=== PATIENT | female | born 1950 | race Caucasian/White ===

== ENCOUNTER 2016-11-26 23:51 | Emergency (ER) | payer MEDICARE, OTHER ==
[2016-11-27] MEDS ORDERED: KETOROLAC TROMETHAMINE 30 MG/1ML VIAL IVP ONE (00:20)
[2016-11-27] MEDS ORDERED: ONDANSETRON HCL/PF 4 MG/ 2ML VIAL IVP ONE (00:27)
[2016-11-27 00:58] LABS: BASOPHILS % 0.2 (0.0-1.5); EOSINOPHILS % 0.4 % (0.0-6.8); LYMPHOCYTES # 0.4 # k/uL (0.6-4.0); MEAN CORPUSCULAR HEMOGLOBIN 31.4 pg (28.0-34.0); MONOCYTES # 0.1 # k/uL (0.0-0.9); MONOCYTES % 1.2 % (0.0-11.0); NEUTROPHILS # 4.7 # k/uL (1.4-7.7)
--- NOTE | 2016-11-27 01:01 | ED Physician Documentation ---
General Adult - HISTORIAN Historian: patient, child (daughter) - HPI Stated Complaint: cough, soa, fever Chief Complaint: General Adult Additional Information: Cough and fever to 101 since 1999 yesterday. Took tylenol 3-4 hours before coming to ER w/o change in temp. Also has GONZALEZ and nausea that began at the same time. Daughter exposed to strep two days ago. Oncologist has told her to come to ER with fever. Timing: still present (temp 100.7 on arrival in ER) - ROS CONST: fever GI/: nausea - PAST HX Past History: other (breast cancer, chronic back pain, depression, GERD, neuropathy) Surgeries/Procedures: other (partial thyroidectomy, [id number] surgeries, hysterectomy) Immunizations: other (flu shot in June) Allergies/Adverse Reactions: Allergies Allergy/AdvReac Type Severity Reaction Status Date / Time No Known Allergies Allergy Verified 09/04/16 09:22 Home Medications: Ambulatory Orders Medication Instructions Recorded Letrozole [Femara] 2.5 mg PO D 07/12/15 Fentanyl [Fentanyl] 50 mcg TOP Q72 09/04/16 Fluoxetine HCl [Fluoxetine HCl] 20 mg PO DAILY 09/04/16 Furosemide [Furosemide] 20 mg PO DAILY 09/04/16 Hydrocodone/Acetaminophen 1 tab PO Q4 PRN 09/04/16 [Hydrocodon-Acetaminophn 10-325] Lorazepam [Lorazepam] 1 mg PO TID PRN 09/04/16 Ondansetron HCl Tablet [Zofran] 4 mg PO Q6 PRN 09/04/16 Fluticasone Propionate [Flonase] 1 spray INH D 11/27/16 Omeprazole [Prilosec] 20 mg PO BID 11/27/16 Prochlorperazine Maleate 10 mg PO Q4 PRN 11/27/16 [Compazine] - SOCIAL HX Smoking History: non-smoker - FAMILY HX Family History: No - VITAL SIGNS Vital Signs: Vital Signs Temp Pulse Resp BP Pulse Ox 100.7 F H 124 H 22 164/90 91 L 11/26/16 23:51 11/26/16 23:51 11/26/16 23:51 11/26/16 23:51 11/26/16 23:51 - REVIEWED ASSESSMENTS Nursing Assessment Reviewed: Yes Vitals Reviewed: Yes Progress - Progress Progress: Chest 2 views History: Headache, nausea, cough, fever, breast cancer Findings: Extensive left upper lung and left basilar lung infiltrates are unchanged since September 04, 2016. Cervical fusion hardware, superior vena cava catheter, and calcified granulomas are observed. Left basilar pleural thickening or small left pleural effusion is unchanged. Heart size is normal. Impression: Chronic left lung infiltrate and pleural thickening. No acute abnormality is observed. Electronically signed on Nov 27, 2016 12:59:10 AM CDT by: Cisco Schroeder Blood cultures done, rapid strep negative, labs good. ED Results Lab/Radiology - Lab Results Lab Results: Lab Results 11/27/16 00:21 WBC 5.20 K/ul K/ul (4.00-12.00) RBC 3.40 M/ul L M/ul (3.90-5.20) Hgb 10.7 g/dL L g/dL (12.0-16.0) Hct 31.9 % L % (34.5-46.5) MCV 93.9 fl fl (80.0-100.0) MCH 31.4 pg pg (28.0-34.0) MCHC 33.5 g/dL g/dL (30.0-36.0) RDW 17.3 % H % (11.3-14.3) Plt Count 206 K/mm3 K/mm3 (130-400) Neut % (Auto) 90.5 % H % (39.0-79.0) Lymph % (Auto) 7.2 % L % (16.0-50.0) [place] % (Auto) 1.2 % % (0.0-11.0) Eos % (Auto) 0.4 % % (0.0-6.8) Baso % (Auto) 0.2 (0.0-1.5) Neut # 4.7 # k/uL # k/uL (1.4-7.7) Lymph # 0.4 # k/uL L # k/uL (0.6-4.0) [place] # 0.1 # k/uL # k/uL (0.0-0.9) Eos # 0.0 # k/uL # k/uL (0.0-0.6) Baso # 0.0 # k/uL # k/uL (0.0-0.5) Reactive Lymphs % 0.5 % % (0.0-5.0) Reactive Lymphs # 0.0 # k/uL # k/uL (0.0-0.8) - Orders Orders: ED Orders Category Date Time Status Place Saline Lock/IV Now Care 11/27/16 00:03 Active CHEST 2 VIEW [CHEST P.A.&LAT 2 VIEWS] [RAD] Stat Exams 11/27/16 Ordered BLOOD CULTURE Stat Lab 11/27/16 00:54 Received CBC/PLATELET/DIFF Routine Lab 11/27/16 00:21 Completed CMP Routine Lab 11/27/16 00:20 Received URINALYSIS Routine Lab 11/27/16 Ordered Ketorolac Tromethamine [Toradol] Med 11/27/16 00:20 Discontinued 30 mg IVP NOW ONE Ondansetron HCl/Pf [Zofran 4 mg/2 ml] Med 11/27/16 00:27 Discontinued 4 mg IVP NOW ONE General Adult Physical Exam - PHYSICAL EXAM GENERAL APPEARANCE: obese EENT: eye inspection normal, ENT inspection normal, pharynx normal NECK: normal inspection, supple RESPIRATORY: no resp distress, rales (soft LLL) CVS: heart sounds normal (decreased throughout, L>R) ABDOMEN: soft, normal bowel sounds, non-tender BACK: normal inspection, no CVA tenderness, other (no vertebral tenderness) EXTREMITIES: no evidence of injury NEURO: CN's nml as tested, motor nml Discharge Clincal Impression: Cough Additional Instructions: Treat your fever with tylenol and ibuprofen. If you are unable to control the fever or you feel you are getting worse, return to the ER. Home Medications: Ambulatory Orders Letrozole [Femara] 2.5 mg PO D 07/12/15 Fentanyl [Fentanyl] 50 mcg TOP Q72 09/04/16 Fluoxetine HCl [Fluoxetine HCl] 20 mg PO DAILY 09/04/16 Furosemide [Furosemide] 20 mg PO DAILY 09/04/16 Hydrocodone/Acetaminophen [Hydrocodon-Acetaminophn 10-325] 1 tab PO Q4 PRN 09/04 Lorazepam [Lorazepam] 1 mg PO TID PRN 09/04/16 Ondansetron HCl Tablet [Zofran] 4 mg PO Q6 PRN 09/04/16 Fluticasone Propionate [Flonase] 1 spray INH D 11/27/16 Omeprazole [Prilosec] 20 mg PO BID 11/27/16 Prochlorperazine Maleate [Compazine] 10 mg PO Q4 PRN 11/27/16 Condition: Good Disposition: 01 HOME, SELF-CARE Decision to Admit: NO Decision Time: 01:27
[2016-11-27 01:10] LABS: eGFR (African) > 60; eGFR (Non-African) > 60
--- NOTE | 2016-11-27 01:15 | Diagnostic Imaging Report ---
LUPIS MANNING~ [facility] [address] [facility] [address] [place], [place]. [address] ~ ~ ~ ~ Report Submission Date: Nov 27, 2016 12:59:10 AM CDT Patient ~ Study Name: VA DICKEY ~ Date: Nov 27, 2016 12:31:29 AM CDT ~ Modality Type: CR Gender: F ~ Description: CHEST : 52 ~ Institution: [facility] Physician: LUPIS MANNING ~ ~ ~ ~ Chest 2 views History: Headache, nausea, cough, fever, breast cancer Findings: Extensive left upper lung and left basilar lung infiltrates are unchanged since September 04, 2016. Cervical fusion hardware, superior vena cava catheter, and calcified granulomas are observed. Left basilar pleural thickening or small left pleural effusion is unchanged. Heart size is normal. Impression: Chronic left lung infiltrate and pleural thickening. No acute abnormality is observed. ~ Electronically signed on Nov 27, 2016 12:59:10 AM CDT by: Cisco DAMICO
[2016-11-27 03:27] VITALS: BP 122/83
== END 2016-11-27 01:35 | disposition home or self-care (01) ==
LOC: ED 23:51
DX: R05 Cough (principal)
CPT/HCPCS: 71020; 80053; 85025; 87040; 87070; 87880; J1885; J2405; 96374; 96375; 99283; 99284; S1016

== ENCOUNTER 2017-03-31 15:42 | Emergency (ER) | payer MEDICARE, OTHER ==
[2017-03-31 16:17] LABS: EOSINOPHILS % 2.1 % (0.0-6.8); MEAN CORPUSCULAR HEMOGLOBIN 29.6 pg (28.0-34.0); MEAN CORPUSCULAR VOLUME 92.3 fl (80.0-100.0); MONOCYTES % 4.1 % (0.0-11.0); NEUTROPHILS # 2.1 # k/uL (1.4-7.7)
[2017-03-31 16:29] LABS: eGFR (African) > 60; eGFR (Non-African) > 60
[2017-03-31] MEDS ORDERED: MORPHINE SULFATE 2 MG/ML PREFILLED SYR ONE (17:09)
[2017-03-31] MEDS ORDERED: ONDANSETRON HCL/PF 4 MG/ 2ML VIAL IVP ONE (17:26)
--- NOTE | 2017-03-31 17:31 | ED Physician Documentation ---
Chest Pain - HISTORIAN Historian: patient - HPI Stated Complaint: Shortness of Breath Chief Complaint: General Adult Additional Information: Joi is a 66yo woman with a history of Stage 4 lung cancer. She has had a partial lung removal on the left and is currently undergoing chemotherapy. She has been feeling some shortness of breath and chest pressure all day. She feels the pressure across her lower chest. It does not radiate to her arms or jaw. She uses a CPAP at home and has a nebulizer, but did not use it today. She does not move her bowels well, but that is her baseline. She denies swelling in her legs, nausea, fever/chills, sweating. On presentation to the ER she was started on oxygen. The shortness of breath has improved, but she still feels pressure in her chest. Onset: hours Timing: still present Severity: moderate Quality: pressure, dull. denies: sharp, stabbing Chest Pain Radiation: no radiation Chest Pain Signs/Symptoms: denies: nausea, vomiting, diaphoresis Relieved By: nothing - ROS CONST: recent illness. denies: fever, recent injury MS/LYMPH: denies: calf pain, ankle swelling GI/: other (constipation from pain medicine). denies: abdominal pain, problems urinating EYES/ENT: none SKIN/ENDO: none NEURO/PSYCH: none - PAST HX NH risk factors: no pertinent history DVT/PE Risk Factors: cancer. denies: leg swelling Neuro deficit: none GI disease: GERD, immunocompromise Lung disease: other (Lung CA) Surgeries/Procedures: hysterectomy, other (partial thyroidectomy, bilateral TKR) Immunizations: influenza - SOCIAL HX Smoking History: non-smoker - VITAL SIGNS Vital Signs: Vital Signs Temp Pulse Resp BP Pulse Ox 98.7 F 78 26 H 132/95 99 03/31/17 15:45 03/31/17 17:00 03/31/17 15:45 03/31/17 15:45 03/31/17 17:00 - REVIEWED ASSESSMENTS Nursing Assessment Reviewed: Yes Vitals Reviewed: Yes <Troy Arboleda - Last Filed: 03/31/17 18:26> - HPI Last known Well Date: 03/30/17 Last Known Well Time: 17:00 - FAMILY HX Family HX: none - VITAL SIGNS Vital Signs: Vital Signs Temp Pulse Resp BP Pulse Ox 98.7 F 83 26 H 132/95 99 03/31/17 15:45 03/31/17 19:00 03/31/17 15:45 03/31/17 15:45 03/31/17 19:00 <Carmelo Mcgarry - Last Filed: 03/31/17 20:17> - PAST HX Allergies/Adverse Reactions: Allergies Allergy/AdvReac Type Severity Reaction Status Date / Time No Known Allergies Allergy Verified 03/31/17 16:07 Home Medications: Ambulatory Orders Medication Instructions Recorded Letrozole [Femara] 2.5 mg PO D 07/12/15 Fentanyl [Fentanyl] 50 mcg TOP Q72 09/04/16 Fluoxetine HCl [Fluoxetine HCl] 20 mg PO DAILY 09/04/16 Furosemide [Furosemide] 20 mg PO DAILY 09/04/16 Hydrocodone/Acetaminophen 1 tab PO Q4 PRN 09/04/16 [Hydrocodon-Acetaminophn 10-325] Lorazepam [Lorazepam] 1 mg PO TID PRN 09/04/16 Ondansetron HCl Tablet [Zofran] 4 mg PO Q6 PRN 09/04/16 Fluticasone Propionate [Flonase] 1 spray INH D 11/27/16 Omeprazole [Prilosec] 20 mg PO BID 11/27/16 Prochlorperazine Maleate 10 mg PO Q4 PRN 11/27/16 [Compazine] Progress - Progress Progress: CT chest, PE protocol: Impression: Significant left-sided consolidation effusion and bronchiectasis. Timing of the contrast bolus makes visualization the pulmonary vasculature difficult. No obvious of luminal filling defect. Zosyn 3.375 gm IV Transfer to [facility], Dr. Bunn. - EKG/XRAY/CT EKG: NSR (HR=85; ME interval wnl; normal axis; non-specific T-wave abnormality.) <Carmelo Mcgarry - Last Filed: 03/31/17 20:17> ED Results Lab/Radiology - Lab Results Lab Results: Lab Results 03/31/17 03/31/17 03/31/17 16:10 16:10 16:10 WBC RBC Hgb Hct MCV MCH MCHC RDW Plt Count Neut % (Auto) Lymph % (Auto) [place] % (Auto) Eos % (Auto) Baso % (Auto) Neut # (Auto) Lymph # (Auto) [place] # (Auto) Eos # (Auto) Baso # (Auto) Reactive Lymphs % Reactive Lymphs # PT 10.0 Seconds Seconds (9.4-11.6) INR 0.95 (0.9-1.2) Sodium 140 mmol/L mmol/L (136-145) Potassium 3.3 mmol/L L mmol/L (3.5-5.0) Chloride 102 mmol/L mmol/L (98-110) Carbon Dioxide 28 mmol/L mmol/L (20-32) BUN 10 mg/dL mg/dL (10-26) Creatinine 0.6 mg/dL mg/dL (0.4-1.5) Estimated Creat Clear 181 Est GFR ( Amer) > 60 (60 - ) Est GFR (Non-Af Amer) > 60 (60 - ) Glucose 100 mg/dL H mg/dL (70-99) Calcium 9.5 mg/dL mg/dL (8.5-10.5) Total Bilirubin 0.3 mg/dL mg/dL (0.2-1.2) AST 23 U/L U/L (0-41) ALT 15 U/L U/L (0-45) Alkaline Phosphatase 44 U/L L U/L (46-116) Creatine Kinase 63 U/L U/L (0-225) Troponin I < 0.03 ng/mL L ng/mL (0.03-0.06) Total Protein 6.5 g/dL g/dL (6.0-8.5) Albumin 4.5 g/dL g/dL (3.0-5.5) 03/31/17 16:10 WBC 3.10 K/ul L K/ul (4.00-12.00) RBC 3.55 M/ul L M/ul (3.90-5.20) Hgb 10.5 g/dL L g/dL (12.0-16.0) Hct 32.8 % L % (34.5-46.5) MCV 92.3 fl fl (80.0-100.0) MCH 29.6 pg pg (28.0-34.0) MCHC 32.1 g/dL g/dL (30.0-36.0) RDW 16.8 % H % (11.3-14.3) Plt Count 201 K/mm3 K/mm3 (130-400) Neut % (Auto) 67.3 % % (39.0-79.0) Lymph % (Auto) 23.4 % % (16.0-50.0) [place] % (Auto) 4.1 % % (0.0-11.0) Eos % (Auto) 2.1 % % (0.0-6.8) Baso % (Auto) 1.0 (0.0-1.5) Neut # (Auto) 2.1 # k/uL # k/uL (1.4-7.7) Lymph # (Auto) 0.7 # k/uL # k/uL (0.6-4.0) [place] # (Auto) 0.1 # k/uL # k/uL (0.0-0.9) Eos # (Auto) 0.1 # k/uL # k/uL (0.0-0.6) Baso # (Auto) 0.0 # k/uL # k/uL (0.0-0.5) Reactive Lymphs % 2.1 % % (0.0-5.0) Reactive Lymphs # 0.1 # k/uL # k/uL (0.0-0.8) PT INR Sodium Potassium Chloride Carbon Dioxide BUN Creatinine Estimated Creat Clear Est GFR ( Amer) Est GFR (Non-Af Amer) Glucose Calcium Total Bilirubin AST ALT Alkaline Phosphatase Creatine Kinase Troponin I Total Protein Albumin - Radiology Radiology Impressions: EKG was normal Chest Xray showed stable cardiac prominence and left hilar inflitrate, left sided changes are chronic. - Orders Orders: ED Orders Category Date Time Status Continuous EKG monitoring Q30M Care 03/31/17 15:59 Active Continuous Pulse Oximetry Q30M Care 03/31/17 15:59 Active CHEST P.A.&LAT 2 VIEWS [RAD] Stat Exams 03/31/17 Ordered CBC/PLATELET/DIFF Routine Lab 03/31/17 16:10 Completed CMP Routine Lab 03/31/17 16:10 Completed CREATINE KINASE Routine Lab 03/31/17 16:10 Completed D DIMER Stat Lab 03/31/17 16:10 Received PT-INR Stat Lab 03/31/17 16:10 Completed TROPONIN I (cTnI) Stat Lab 03/31/17 16:10 Completed Morphine Sulfate [DepoDur] Med 03/31/17 17:09 Discontinued 2 mg .ROUTE .STK-MED ONE Ondansetron HCl/Pf [Zofran 4 mg/2 ml] Med 03/31/17 17:26 Once 4 mg IVP NOW ONE Oxygen Daily Oxygen 03/31/17 16:00 Ordered EKG WITH COMPARISON Stat Ther 03/31/17 15:59 Ordered <RoblesTroy - Last Filed: 03/31/17 18:26> - Lab Results Lab Results: Lab Results 03/31/17 03/31/17 03/31/17 16:10 16:10 16:10 WBC RBC Hgb Hct MCV MCH MCHC RDW Plt Count Neut % (Auto) Lymph % (Auto) [place] % (Auto) Eos % (Auto) Baso % (Auto) Neut # (Auto) Lymph # (Auto) [place] # (Auto) Eos # (Auto) Baso # (Auto) Reactive Lymphs % Reactive Lymphs # PT 10.0 Seconds Seconds (9.4-11.6) INR 0.95 (0.9-1.2) D-Dimer 1311 ng/mL H ng/mL (6.0-682) Sodium Potassium Chloride Carbon Dioxide BUN Creatinine Estimated Creat Clear Est GFR ( Amer) Est GFR (Non-Af Amer) Glucose Calcium Total Bilirubin AST ALT Alkaline Phosphatase Creatine Kinase Troponin I < 0.03 ng/mL L ng/mL (0.03-0.06) Total Protein Albumin 03/31/17 03/31/17 16:10 16:10 WBC 3.10 K/ul L K/ul (4.00-12.00) RBC 3.55 M/ul L M/ul (3.90-5.20) Hgb 10.5 g/dL L g/dL (12.0-16.0) Hct 32.8 % L % (34.5-46.5) MCV 92.3 fl fl (80.0-100.0) MCH 29.6 pg pg (28.0-34.0) MCHC 32.1 g/dL g/dL (30.0-36.0) RDW 16.8 % H % (11.3-14.3) Plt Count 201 K/mm3 K/mm3 (130-400) Neut % (Auto) 67.3 % % (39.0-79.0) Lymph % (Auto) 23.4 % % (16.0-50.0) [place] % (Auto) 4.1 % % (0.0-11.0) Eos % (Auto) 2.1 % % (0.0-6.8) Baso % (Auto) 1.0 (0.0-1.5) Neut # (Auto) 2.1 # k/uL # k/uL (1.4-7.7) Lymph # (Auto) 0.7 # k/uL # k/uL (0.6-4.0) [place] # (Auto) 0.1 # k/uL # k/uL (0.0-0.9) Eos # (Auto) 0.1 # k/uL # k/uL (0.0-0.6) Baso # (Auto) 0.0 # k/uL # k/uL (0.0-0.5) Reactive Lymphs % 2.1 % % (0.0-5.0) Reactive Lymphs # 0.1 # k/uL # k/uL (0.0-0.8) PT INR D-Dimer Sodium 140 mmol/L mmol/L (136-145) Potassium 3.3 mmol/L L mmol/L (3.5-5.0) Chloride 102 mmol/L mmol/L (98-110) Carbon Dioxide 28 mmol/L mmol/L (20-32) BUN 10 mg/dL mg/dL (10-26) Creatinine 0.6 mg/dL mg/dL (0.4-1.5) Estimated Creat Clear 181 Est GFR ( Amer) > 60 (60 - ) Est GFR (Non-Af Amer) > 60 (60 - ) Glucose 100 mg/dL H mg/dL (70-99) Calcium 9.5 mg/dL mg/dL (8.5-10.5) Total Bilirubin 0.3 mg/dL mg/dL (0.2-1.2) AST 23 U/L U/L (0-41) ALT 15 U/L U/L (0-45) Alkaline Phosphatase 44 U/L L U/L (46-116) Creatine Kinase 63 U/L U/L (0-225) Troponin I Total Protein 6.5 g/dL g/dL (6.0-8.5) Albumin 4.5 g/dL g/dL (3.0-5.5) - Orders Orders: ED Orders Category Date Time Status Continuous EKG monitoring Q30M Care 03/31/17 15:59 Active Continuous Pulse Oximetry Q30M Care 03/31/17 15:59 Active CHEST P.A.&LAT 2 VIEWS [RAD] Stat Exams 03/31/[address] PE CHEST Stat Exams 03/31/17 Completed CBC/PLATELET/DIFF Routine Lab 03/31/17 16:10 Completed CMP Routine Lab 03/31/17 16:10 Completed CREATINE KINASE Routine Lab 03/31/17 16:10 Completed D DIMER Stat Lab 03/31/17 16:10 Completed PT-INR Stat Lab 03/31/17 16:10 Completed TROPONIN I (cTnI) Stat Lab 03/31/17 16:10 Completed Morphine Sulfate [DepoDur] Med 03/31/17 17:09 Discontinued 2 mg .ROUTE .STK-MED ONE Morphine Sulfate [DepoDur] Med 03/31/17 17:32 Discontinued 2 mg IVP NOW ONE Ondansetron HCl/Pf [Zofran 4 mg/2 ml] Med 03/31/17 17:26 Discontinued 4 mg IVP NOW ONE Oxygen Daily Oxygen 03/31/17 16:00 Ordered EKG WITH COMPARISON Stat Ther 03/31/17 15:59 Ordered <Carmelo Mcgarry - Last Filed: 03/31/17 20:17> Chest Pain Physical Exam - EXAM General Appearance: no acute distress, alert. No: hyperventilating EENT: eye inspection normal. No: pale conjunctivae, dry mucous membranes Neck: nml inspection. No: JVD present Respiratory: no resp. distress, chest non-tender. No: rales CVS: reg. rate & rhythm, no murmur Abdomen: soft, no distension, non-tender Skin: warm/dry, normal color Extremities: non-tender, no evidence of injury, no edema Neuro: oriented X3, CN's nml as tested, cognition normal <Robles,Simmons - Last Filed: 03/31/17 18:26> Discharge <Robles,Simmons - Last Filed: 03/31/17 18:26> Decision to Admit: NO Decision Time: 20:15 <Carmelo Mcgarry - Last Filed: 03/31/17 20:17> Clincal Impression: Chest pain, sob, lung cancer Referrals: Brielle Tolliver MD [Primary Care Provider] - Home Medications: Ambulatory Orders Letrozole [Femara] 2.5 mg PO D 07/12/15 Fentanyl [Fentanyl] 50 mcg TOP Q72 09/04/16 Fluoxetine HCl [Fluoxetine HCl] 20 mg PO DAILY 09/04/16 Furosemide [Furosemide] 20 mg PO DAILY 09/04/16 Hydrocodone/Acetaminophen [Hydrocodon-Acetaminophn 10-325] 1 tab PO Q4 PRN 09/04 Lorazepam [Lorazepam] 1 mg PO TID PRN 09/04/16 Ondansetron HCl Tablet [Zofran] 4 mg PO Q6 PRN 09/04/16 Fluticasone Propionate [Flonase] 1 spray INH D 11/27/16 Omeprazole [Prilosec] 20 mg PO BID 11/27/16 Prochlorperazine Maleate [Compazine] 10 mg PO Q4 PRN 11/27/16 Condition: Stable Disposition: 02 XFER [facility]
[2017-03-31] MEDS ORDERED: MORPHINE SULFATE 2 MG/ML PREFILLED SYR IVP ONE (17:32)
--- NOTE | 2017-03-31 19:31 | Diagnostic Imaging Report ---
MESFIN PEDRAZA [facility] [address] [facility] [address] [place], [place]. [address] Report Submission Date: Mar 31, 2017 4:38:28 PM CDT Patient Study Name: VA DICKEY Date: Mar 31, 2017 4:13:55 PM CDT Modality Type: CR Gender: F Description: CHEST : 52 Institution: [facility] Physician: MESFIN PEDRAZA Examination: PA and lateral chest. History: Evaluate lung urias. Comparison exam: 27 November 2016 Findings: PA lateral chest demonstrates a prominent cardiac silhouette. Continued parenchymal haze involving the left hilum and lower lung. Obscuration of the left hemidiaphragm. Right hemithorax without focal infiltrate or effusion. Left subclavian line. Elevation of the left hemidiaphragm with stomach bubble. Impression: Stable cardiac prominence and left hilar infiltrate/effusion. No new right consolidation or effusion. Electronically signed on Mar 31, 2017 4:38:28 PM CDT by: Herrera DAMICO
--- NOTE | 2017-03-31 19:46 | Diagnostic Imaging Report ---
SHARRI MURDOCK [facility] [address] [facility] [address] [address] Report Submission Date: Mar 31, 2017 7:44:24 PM CDT Patient Study Name: VA DICKEY Date: Mar 31, 2017 7:07:50 PM CDT Modality Type: CT\SR Gender: F Description: CT ANGIOGRAPHY CHEST 7 : 52 Institution: [facility] Physician: SHARRI MURDOCK Examination: CT chest History: Chest discomfort Comparison exams: Plain film dated 31 March 2017 Technique: CT chest without contrast protocol Findings: Left hemithorax demonstrates a large consolidative process at the lung base associated with posterior pleural thickening/fluid. Left hilum with scattered regions of bronchial thickening /bronchiectasis. Right hemithorax with mild peripheral scarring and atelectasis. Calcified granuloma right lower lung measuring 1 cm. Cardiac silhouette is upper limits of normal. Mediastinal structures without gross irregularity. Thoracic aorta with a peripheral atherosclerotic disease. No aneurysmal dilation. Timing of the contrast bolus makes visualization the pulmonary vasculature difficult. No obvious of luminal filling defect. Osseous structures demonstrate degenerative changes. Lower neck structures without gross abnormality. Upper abdominal organs without acute appearing process. Significantly elevated left hemidiaphragm Incidentally noted a solid appearing density within the medial margin of the left breast measuring 2.5 cm. Impression: Significant left-sided consolidation effusion and bronchiectasis. Correlation with any previous CT chest recommended if available. Timing of the contrast bolus makes visualization the pulmonary vasculature difficult. No obvious of luminal filling defect. Left breast density: not formally evaluated - recommend obtaining mammogram if not already performed. Electronically signed on Mar 31, 2017 7:44:24 PM CDT by: Herrera DAMICO
[2017-03-31] MEDS ORDERED: PIPERACILLIN SODIUM/TAZOBACTAM 3.375 GM VIAL IV ONE (20:14)
[2017-03-31] MEDS ORDERED: 0.9 % SODIUM CHLORIDE 50 ML IV ONE (20:14)
[2017-03-31] MEDS ORDERED: PIPERACILLIN SODIUM/TAZOBACTAM 3.375 GM in 0.9 % SODIUM CHLORIDE 50 ML IV STA (20:14)
[2017-03-31 21:17] VITALS: BP 111/81
== END 2017-03-31 21:00 | disposition short-term general hospital (02) ==
LOC: ED 15:42
DX: R07.9 Chest pain, unspecified (principal); R06.02 Shortness of breath; D02.20 Carcinoma in situ of unspecified bronchus and lung
CPT/HCPCS: 71020; 71275; 80053; 82550; 84484; 85025; 85379; 85610; J2270; J2543; 96374; 96375; 99284

== ENCOUNTER 2019-03-12 04:20 | Emergency (ER) | payer MEDICARE, OTHER ==
--- NOTE | 2019-03-12 04:33 | ED Physician Documentation ---
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 Tonight pt developed vomiting without nausea. She said she felt as if her stomach was backed up or fill and she just could not belch the gas. 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 No fever. Pt has had a recent normal bm.) - ROS CONST: no problems EYES/ENT: none CVS/RESP: none GI/: nausea MS/SKIN/LYMPH: none - PAST HX Past History: other (lung cancer with bone mets; thyroid dz; ) Surgeries/Procedures: hysterectomy, other (ortho surgery) Allergies/Adverse Reactions: Allergies Allergy/AdvReac Type Severity Reaction Status Date / Time No Known Allergies Allergy Verified 03/12/19 05:07 Home Medications: Ambulatory Orders Medication Instructions Recorded Letrozole [Femara] 2.5 mg PO D 07/12/15 Fentanyl 50 mcg TOP Q72 09/04/16 Fluoxetine HCl 20 mg PO DAILY 09/04/16 Furosemide 20 mg PO DAILY 09/04/16 Hydrocodone/Acetaminophen 1 tab PO Q4 PRN 09/04/16 [Hydrocodon-Acetaminophn 10-325] Lorazepam 1 mg PO TID PRN 09/04/16 Ondansetron HCl Tablet [Zofran] 4 mg PO Q6 PRN 09/04/16 Fluticasone Propionate [Flonase] 1 spray INH D 11/27/16 Omeprazole [Prilosec] 20 mg PO BID 11/27/16 Prochlorperazine Maleate 10 mg PO Q4 PRN 11/27/16 [Compazine] - SOCIAL HX Smoking History: quit greater than 1 year - FAMILY HX Family History: No - VITAL SIGNS Vital Signs: Vital Signs Temp Pulse Resp BP Pulse Ox 180/97 06/22/17 00:55 - REVIEWED ASSESSMENTS Nursing Assessment Reviewed: Yes Vitals Reviewed: Yes Progress - Progress Progress: NS 1 L IVF Zofran 4 mg IV KCl 40 mEq po x 1 Pt improved. Rx Potassium Chloride 20 mEq. Take one by mouth once daily. Follow up with primary provider for recheck of your potassium level in a week or two. Continue other home medications. General Adult Physical Exam - PHYSICAL EXAM GENERAL APPEARANCE: mild distress EENT: pharynx normal NECK: normal inspection, supple RESPIRATORY: no resp distress, chest non-tender, breath sounds normal CVS: reg rate & rhythm, heart sounds normal, equal pulses ABDOMEN: soft, no organomegaly, normal bowel sounds BACK: normal inspection, no CVA tenderness SKIN: warm/dry, normal color EXTREMITIES: non-tender, normal range of motion, no evidence of injury NEURO: oriented X3, motor nml, sensation nml Discharge Clincal Impression: Nausea, HYPOKALEMIA Referrals: Brielle Tolliver MD [Primary Care Provider] - Condition: Stable Disposition: HOME, SELF-CARE Decision to Admit: NO Decision Time: 05:47
[2019-03-12] MEDS ORDERED: ONDANSETRON HCL/PF 4 MG/ 2ML VIAL IVP ONE (04:40)
[2019-03-12] MEDS ORDERED: 0.9 % SODIUM CHLORIDE 1,000 ML IV ONE ×2 (04:40→04:42)
[2019-03-12] MEDS ORDERED: ONDANSETRON HCL/PF 4 MG/ 2ML VIAL ONE (04:42)
[2019-03-12] MEDS ORDERED: SIMETHICONE 80 MG TAB.CHEW PO ONE (04:47)
[2019-03-12] MEDS ORDERED: POTASSIUM CHLORIDE 20 MEQ TABLET.ER PO ONE (04:56)
[2019-03-12 04:59] LABS: BASOPHILS % 0.6 % (0.0-1.5); NEUTROPHILS # 4.4 # k/uL (1.4-7.7)
[2019-03-12 05:00] LABS: eGFR (Non-African) > 60
[2019-03-12 07:01] VITALS: BP 160/93
== END 2019-03-12 06:37 | disposition home or self-care (01) ==
LOC: ED 04:20
DX: E87.6 Hypokalemia (principal); R11.0 Nausea; C34.90 Malignant neoplasm of unspecified part of unspecified bronchus or lung; C79.51 Secondary malignant neoplasm of bone
CPT/HCPCS: 80053; 83690; 85025; 96361; 96372; 99283; 99284; J2405; A9270; J7030; S1016

== ENCOUNTER 2019-05-22 09:40 | Emergency (ER) | payer OTHER ==
[2019-05-22 09:58] LABS: BASOPHILS % 0.4 % (0.0-1.5); NEUTROPHILS # 4.2 # k/uL (1.4-7.7)
[2019-05-22] MEDS ORDERED: ASPIRIN 81 MG CHEW TAB PO ONE (09:59)
[2019-05-22] MEDS ORDERED: ONDANSETRON HCL/PF 4 MG/ 2ML VIAL IVP ONE (09:59)
--- NOTE | 2019-05-22 10:16 | ED Physician Documentation ---
Chest Pain - HISTORIAN Historian: patient - HPI Stated Complaint: chest pressure Chief Complaint: Chest Pain (Pressure 2/10) Additional Information: Patient is a 68 year old female who presents to the ER with c/o chest pressure that started around 6 a.m. this morning. Patient has been receiving chemo off/on for 8 years. Last chemo treatment was in September. She is scheduled this afternoon with radiologist to discuss when she will start radiation at [facility]. She states that cancer initially started in her lungs, breast and is now in her bones. Patient states that she took a baby aspirin this morning and ibuprofen but did not feel that it helped. She c/o a little nausea (takes zofran)- denies diaphoresis; no indication of TIA/CVA. Onset: hours (Started around 6 a.m.) Timing: sudden onset, still present Duration: sudden-onset Last known Well Date: 05/22/19 Last Known Well Time: 06:00 Last known Well Code/Unknown Code: Known Context: rest Severity: mild Quality: pressure Chest Pain Radiation: other (Feels some weakness to the left arm) Worsened By: nothing Relieved By: nothing - ROS CONST: recent illness (patient has lung CA with mets) MS/LYMPH: none GI/: nausea EYES/ENT: none SKIN/ENDO: none NEURO/PSYCH: none - PAST HX VT risk factors: other (lung ca, breast ca, bone ca, hypothyroid) DVT/PE Risk Factors: cancer TAD/AAA risk factors: none Neuro deficit: none GI disease: other (thyroid disorder) Lung disease: other (lung ca) Surgeries/Procedures: hysterectomy, other (bilateral knees, neck, eye, back) Immunizations: UTD Allergies/Adverse Reactions: Allergies Allergy/AdvReac Type Severity Reaction Status Date / Time No Known Allergies Allergy Verified 05/22/19 10:07 Home Medications: Ambulatory Orders Medication Instructions Recorded Letrozole [Femara] 2.5 mg PO D 07/12/15 Fentanyl 50 mcg TOP Q72 09/04/16 Fluoxetine HCl 20 mg PO DAILY 09/04/16 Furosemide 20 mg PO DAILY 09/04/16 Hydrocodone/Acetaminophen 1 tab PO Q4 PRN 09/04/16 [Hydrocodon-Acetaminophn 10-325] Lorazepam 1 mg PO TID PRN 09/04/16 Ondansetron HCl Tablet [Zofran] 4 mg PO Q6 PRN 09/04/16 Fluticasone Propionate [Flonase] 1 spray INH D 11/27/16 Omeprazole [Prilosec] 20 mg PO BID 11/27/16 Prochlorperazine Maleate 10 mg PO Q4 PRN 11/27/16 [Compazine] - SOCIAL HX Smoking History: quit greater than 1 year Alcohol Use: none Drug Use: none - FAMILY HX Family HX: none - VITAL SIGNS Vital Signs: Vital Signs Temp Pulse Resp BP Pulse Ox 74 160/93 95 05/22/19 09:43 03/12/19 06:53 05/22/19 09:43 - REVIEWED ASSESSMENTS Nursing Assessment Reviewed: Yes Vitals Reviewed: Yes Progress - Progress Progress: 12:46 2nd troponin is negative- patient states that chest pressure resolved but then came back again- discussed options; will give GI cocktail. ED Results Lab/Radiology - Lab Results Lab Results: Lab Results 05/22/19 09:57 WBC 5.80 K/ul K/ul (4.00-12.00) RBC 4.44 M/ul M/ul (3.90-5.20) Hgb 12.3 g/dL g/dL (11.5-16.0) Hct 36.9 % % (34.5-46.5) MCV 83.0 fl fl (80.0-100.0) MCH 27.8 pg L pg (28.0-34.0) MCHC 33.5 g/dL g/dL (30.0-36.0) RDW 14.9 % H % (11.3-14.3) Plt Count 199 K/mm3 K/mm3 (130-400) Neut % (Auto) 72.6 % % (39.0-79.0) Lymph % (Auto) 16.5 % % (16.0-50.0) [place] % (Auto) 7.3 % % (0.0-11.0) Eos % (Auto) 3.2 % % (0.0-6.8) Baso % (Auto) 0.4 % % (0.0-1.5) Neut # (Auto) 4.2 # k/uL # k/uL (1.4-7.7) Lymph # (Auto) 1.0 # k/uL # k/uL (0.6-4.0) [place] # (Auto) 0.4 # k/uL # k/uL (0.0-0.9) Eos # (Auto) 0.2 # k/uL # k/uL (0.0-0.6) Baso # (Auto) 0.0 # k/uL # k/uL (0.0-0.5) - Radiology Radiology Impressions: Exam: Chest two views. History: Shortness of breath. The examination is compared to study dated June 21, 2017. A central venous line through the left subclavian vein remains in position with tip in the anticipated superior vena cava. Diminished yet persistent left basilar infiltrate and pleural effusions are noted. Right lung is clear. Heart size is normal with atherosclerotic plaques seen in the aorta. Impression: Diminished yet persistent left basilar infiltrate and pleural effusions. - Orders Orders: ED Orders Category Date Time Status Continuous EKG monitoring Q30M Care 05/22/19 09:43 Active Continuous Pulse Oximetry Q30M Care 05/22/19 09:[address] IV Lock 1T Care 05/22/19 09:43 Active CHEST 2VIEW [RAD] Stat Exams 05/22/19 Ordered CBC/PLATELET/DIFF Routine Lab 05/22/19 09:57 Completed CKMB Stat Lab 05/22/19 09:57 Received CMP Routine Lab 05/22/19 09:57 Received CREATINE KINASE Routine Lab 05/22/19 09:57 Received TROPONIN I Stat Lab 05/22/19 09:57 Received Aspirin [Иван] Med 05/22/19 09:59 Discontinued 162 mg PO NOW ONE Ondansetron HCl/Pf [Zofran] Med 05/22/19 09:59 Discontinued 4 mg IVP NOW ONE Oxygen Daily Oxygen 05/22/19 09:45 Ordered EKG WITH COMPARISON Stat Ther 05/22/19 09:43 Ordered Chest Pain Physical Exam - EXAM General Appearance: no acute distress, alert EENT: eye inspection normal, ENT inspection normal, pharynx normal, TIR, dry mucous membranes Neck: nml inspection, no carotid bruit Respiratory: chest non-tender, nml breath sounds CVS: reg. rate & rhythm, no murmur, no gallop, pulses full, pulses equal Abdomen: soft, no organomegaly, normal bowel sounds, no abdominal bruit, no distension Skin: warm/dry, pallor Extremities: non-tender, normal range of motion, no edema Neuro: oriented X3, CN's nml as tested, motor nml, sensation nml, mood/affect nml, cognition normal Discharge Clincal Impression: Non-cardiac chest pain, GERD (gastroesophageal reflux disease) Referrals: Brielle Tolliver MD [Primary Care Provider] - 2 Days Additional Instructions: Keep appointment this afternoon with Oncologist (Labs/Xray sent with patient to take to appointment) Follow up with PCP this week for re-evaluation Condition: Good Disposition: 01 HOME, SELF-CARE Decision to Admit: NO Decision Time: 14:15
[2019-05-22 10:18] LABS: eGFR (Non-African) > 60
[2019-05-22] MEDS ORDERED: 0.9 % SODIUM CHLORIDE 500 ML IV ONE (10:42)
[2019-05-22] MEDS ORDERED: MAG HYDROX/ALUMINUM HYD/SIMETH 30 ML, Lidocaine 2% Viscous 15 ML PO ONE ×2 (12:47)
[2019-05-22 14:22] VITALS: BP 134/86
--- NOTE | 2019-05-24 14:14 | Diagnostic Imaging Report ---
KIMANI LOZA ED [facility] [address] [facility] [address] [address] Report Submission Date: May 22, 2019 10:26:13 AM CDT Patient Study Name: VA DICKEY Date: May 22, 2019 9:54:58 AM CDT Modality Type: DX Gender: F Description: CHEST 2VIEW : 52 Institution: [facility] Physician: KIMANI LOZA ED Exam: Chest two views. History: Shortness of breath. The examination is compared to study dated June 21, 2017. A central venous line through the left subclavian vein remains in position with tip in the anticipated superior vena cava. Diminished yet persistent left basilar infiltrate and pleural effusions are noted. Right lung is clear. Heart size is normal with atherosclerotic plaques seen in the aorta. Impression: Diminished yet persistent left basilar infiltrate and pleural effusions. Electronically signed on May 22, 2019 10:26:13 AM CDT by: Carlos DAMICO
== END 2019-05-22 13:37 | disposition home or self-care (01) ==
LOC: ED 09:40
DX: K21.9 Gastro-esophageal reflux disease without esophagitis (principal); R07.9 Chest pain, unspecified
CPT/HCPCS: 36415; 71046; 80053; 82550; 82553; 84484; 85025; 93005; 96360; 96374; 99282; 99283; J2405; J7060; A9270-GY; S1016